=== PATIENT | female | born 1965 | race Caucasian/White ===

== ENCOUNTER 2017-01-12 21:30 | Emergency (ER) | payer OTHER ==
[~2017-01-12] VITALS: Ht 154.9 cm; Wt 98.0 kg
[~2017-01-12 21:30] MED LIST: IBUP800T25 PO; LISI-327 PO
[2017-01-12 21:34] VITALS: Ht 154.9 cm; Wt 98.0 kg
[2017-01-13] MEDS ORDERED: ONDANSETRON (ODT) 4 MG TAB ODT STA (01:08)
[2017-01-13] MEDS ORDERED: KETOROLAC 15 MG INJ IM STA (01:08)
[2017-01-13 01:25] LABS: URINE BLOOD (Dip) POC 2+ (NEGATIVE)
[2017-01-13] MEDS ORDERED: DIAZEPAM 5 MG TAB PO ONE (01:30)
--- NOTE | 2017-01-13 02:47 | ERD ---
ER Documentation Chief Complaint Date/Time DATE: 01/13/17 TIME: 02:36 Chief Complaint pain on right knee, lower back x 1 day. also c/o cough HPI Pleasant 51-year-old female presenting to emergency department with her 2 daughters for translation. Patient reports cold symptoms with vomiting 3 days. Patient reports generalized abdominal pain. She has vomited 5 times last emesis 1400. Patient has been vomiting hard enough to cause low back pain. Patient states pain is on both sides of her back, denies any injury. Patient has a secondary complaint unrelated, chronic right knee pain status post total knee replacement last year. Patient has been seen by her primary care physician for this complaint. Reports that she has not had this type of pain since before surgery. Denies any new injury. Pain is greater than 5/10 on pain scale. Patient denies fever, chills, dysuria, or diarrhea ROS All systems reviewed and are negative except as per history of present illness. Medications Home Meds Active Scripts Hydrocodone/Acetaminophen ([place] 5-325 Tablet) 1 Each Tablet, 1 TAB PO Q6H Y for PAIN, #7 TAB Prov:MAGGIE,NORMA 01/13/17 Ondansetron (Ondansetron Odt) 4 Mg Tab.rapdis, 4 MG PO Q6H Y for NAUSEA AND/OR VOMITING, #10 TAB Prov:MAGGIE,NORMA 01/13/17 Ibuprofen* (Motrin*) 800 Mg Tab, 800 MG PO Q8, #30 TAB 0 Refills Prov:SHERIF KAY PA-C 02/03/16 Reported Medications Lisinopril-Hydrochlorothiazide (Lisinopril-HCTZ) 20-12.5 Mg Tab, 1 TAB PO DAILY , #30 TAB 05/03/16 Allergies Allergies: Coded Allergies: No Known Allergies (Verified Allergy, Mild, 01/12/17) PMhx/Soc History of Surgery: Yes (LT+ RT TKR, ) Anesthesia Reaction: No Hx Neurological Disorder: No Hx Respiratory Disorders: No Hx Cardiac Disorders: Yes (HTN, HIGH CHOLESTEROL) Hx Psychiatric Problems: No Hx Miscellaneous Medical Probl: Yes (OA, HTN) Hx Alcohol Use: No Hx Substance Use: No Hx Tobacco Use: No Smoking Status: Never smoker Physical Exam Vitals Vital Signs Date Time Temp Pulse Resp B/P Pulse Ox O2 Delivery O2 Flow Rate FiO2 01/13/17 03:01 98.6 80 123/78 96 Room Air 01/12/17 21:34 100.0 91 20 126/78 96 Vitals stable, triage note reviewed Physical Exam Const: No acute distress Head: Atraumatic Eyes: Normal Conjunctiva PERRLA, EOMI ENT: Normal External Ears, Nose and Mouth. Mucous membranes moist Neck: Neck is supple. Full range of motion..~ No meningismus. Resp: Chest rise and fall symmetrically clear to auscultation bilaterally, no rales wheezes or rhonchi Cardio: Regular rate and rhythm, no murmurs Abd: Soft, non tender, no epigastric pain, no periumbilical pain, no Lisa' s sign or McBurney point tenderness, abdomen is non distended, obese with normal bowel sounds, no CVA tenderness Skin: No petechiae or rashes Back: No midline or flank tenderness Ext: Lower Extremity -right knee Skin: No laceration, healed midline scar from total knee replacement Compartments: Soft Motor: Full active range of motion hip/knee Sensation: Intact to light touch Bones: Generalized tenderness around patella Joints: No effusion or laxity Pulses/Perfusion: 2+ DP, Capillary refill < 2 seconds Neur: Awake and alert Psych: Normal Mood and Affect Results 24 hrs Laboratory Tests Test 01/13/17 01:24 Bedside Urine pH (LAB) 6.0 Bedside Urine Protein (LAB) 1+ Bedside Urine Glucose (UA) Negative Bedside Urine Ketones (LAB) Trace Bedside Urine Blood 2+ Bedside Urine Nitrite (LAB) Negative Bedside Urine Leukocyte Esterase (L Negative Current Medications Medications (Trade) Dose Ordered Sig/Gillian Route PRN Reason Start Time Stop Time Status Last Admin Dose Admin Ondansetron HCl (Zofran Odt) 4 mg ONCE STAT ODT 01/13/17 01:08 01/13/17 01:12 DC 01/13/17 01:30 Ketorolac Tromethamine (Toradol) 15 mg ONCE STAT IM 01/13/17 01:08 01/13/17 01:12 DC 01/13/17 01:31 Diazepam (Valium) 5 mg ONCE ONCE PO 01/13/17 01:30 01/13/17 01:31 DC 01/13/17 01:30 Microscopic hematuria noted. Proteinuria noted. Patient will follow-up with primary physician for further evaluation Departure Diagnosis: Primary Impression: Knee pain Laterality: right Chronicity: chronic Qualified Code: M25.561 - Chronic pain of right knee Additional Impression: Vomiting Vomiting type: unspecified Vomiting Intractability: non-intractable Nausea presence: with nausea Qualified Code: R11.2 - Non-intractable vomiting with nausea, unspecified vomiting type Condition: Good Patient Instructions: Nausea and Vomiting-Adult, Osteoarthritis [facility] Additional Instructions: Thank you for for coming to [facility] for your care today. Please ask your nurse or provider if you have questions about your care today and do not leave until all your questions have been answered. Please use any medications given as directed and follow-up with your doctor (or the doctor you were referred to) in the next 2-3 days. If you do not have a primary care doctor you may follow up at the [facility] (listed below). You may also use motrin and tylenol as needed for fever and/or pain unless instructed otherwise by your provider or nurse. Indications for more urgent follow-up have been discussed, but you may return to the Emergency Department at ANY time for any worrisome or worsening symptoms. If you have abdominal pain, please know that no test or exam you received is perfect and you should follow up within 8 hours for continued pain. If you had any imaging studies today, such as an X-Ray or CT Scan, these studies will be reviewed later by a radiologist. You will be called if there are important findings that were not identified today, so make sure the contact information you provided at registration is correct. If you received any narcotic pain control medicine today, such as Vicodin, Morphine or Dilaudid, your coordination and judgment may be affected for a number of hours. Please do not drive or operate heavy machinery, and you may want someone to assist you at home. If you were given a prescription for narcotic medication, be aware that it is very addictive- use sparingly and only if necessary. NORMA SERRANO Jan 13, 2017 02:46
[2017-01-13] MEDS ORDERED: ONDA4TAB14 PO (02:48)
[2017-01-13] MEDS ORDERED: HYDR-906 PO (02:48)
[2017-01-13 03:01] VITALS: BP 123/78; PULSE 80; TEMP 98.6
== END 2017-01-13 03:13 | disposition home or self-care (01) ==
LOC: FTE 21:30
DX: M25.561 Pain in right knee (principal); R11.2 Nausea with vomiting, unspecified; I10 Essential (primary) hypertension; Z96.651 Presence of right artificial knee joint
CPT/HCPCS: 81003; 96372; J1885; Z7502; Z7610

== ENCOUNTER 2017-06-20 08:21 | Emergency (ER) | payer OTHER ==
[~2017-06-20] VITALS: Ht 157.5 cm; Wt 85.0 kg
[~2017-06-20 08:21] MED LIST changes: +HYDR-906 PO; +ONDA4TAB14 PO
[2017-06-20 08:31] VITALS: Ht 157.5 cm; Wt 85.0 kg
[2017-06-20] MEDS ORDERED: MED4DP PO (08:52)
[2017-06-20] MEDS ORDERED: BEN25 PO (08:52)
[2017-06-20] MEDS ORDERED: IBUP400T22 PO (08:52)
[2017-06-20] MEDS ORDERED: DIPHENHYDRAMINE 25 MG CAP PO ONE (09:00)
[2017-06-20] MEDS ORDERED: predniSONE 20 MG TAB PO ONE (09:00)
--- NOTE | 2017-06-20 09:43 | ERD ---
ER Documentation Chief Complaint Date/Time DATE: 06/20/17 TIME: 09:39 Chief Complaint Generalized rash x 1 week HPI 52-year-old female comes in with generalized pruritic rash that started yesterday after eating ceviche shrimp. She states that she has had diffuse itching that goes on and off, mostly on her trunk. She has no trouble swallowing, voice changes. She has not had any other foods, medications, lotions or creams or allergens that she can think of. She is no trouble breathing, chest pain. She also reports left-sided jaw swelling and tenderness. She has not had any fevers, ear pain, sore throat, rhinorrhea or cough with this. ROS All systems reviewed and are negative except as per history of present illness. Medications Home Meds Active Scripts Ibuprofen* (Motrin*) 400 Mg Tab, 400 MG PO Q6, #20 TAB Prov:MARIIA LISA PA-C 06/20/17 Diphenhydramine Hcl* (Benadryl*) 25 Mg Cap, 25 MG PO Q6H Y for ITCHING, #30 CAP Prov:MARIIA LISA PA-C 06/20/17 Methylprednisolone* (Medrol* DOSE PACK) 4 Mg/Dose-Pack Tab.ds.pk, 4 MG PO . DIRECTED, #1 PACKET Prov:MARIIA LISA PA-C 06/20/17 Hydrocodone/Acetaminophen ([place] 5-325 Tablet) 1 Each Tablet, 1 TAB PO Q6H Y for PAIN, #7 TAB Prov:MAGGIE,NORMA 01/13/17 Ondansetron (Ondansetron Odt) 4 Mg Tab.rapdis, 4 MG PO Q6H Y for NAUSEA AND/OR VOMITING, #10 TAB Prov:MAGGIE,NORMA 01/13/17 Ibuprofen* (Motrin*) 800 Mg Tab, 800 MG PO Q8, #30 TAB 0 Refills Prov:SHERIF KAY PA-C 02/03/16 Reported Medications Lisinopril-Hydrochlorothiazide (Lisinopril-HCTZ) 20-12.5 Mg Tab, 1 TAB PO DAILY , #30 TAB 05/03/16 Allergies Allergies: Coded Allergies: No Known Allergies (Verified Allergy, Mild, 01/12/17) PMhx/Soc History of Surgery: Yes (LT+ RT TKR, ) Anesthesia Reaction: No Hx Neurological Disorder: No Hx Respiratory Disorders: No Hx Cardiac Disorders: Yes (HTN, HIGH CHOLESTEROL) Hx Psychiatric Problems: No Hx Miscellaneous Medical Probl: Yes (OA, HTN) Hx Alcohol Use: No Hx Substance Use: No Hx Tobacco Use: No Smoking Status: Never smoker Physical Exam Vitals Vital Signs Date Time Temp Pulse Resp B/P Pulse Ox O2 Delivery O2 Flow Rate FiO2 06/20/17 08:31 97.9 73 20 145/86 99 Physical Exam General: Well-developed, well-nourished. The patient appears in no acute distress. HEENT: Head is normocephalic, atraumatic. No scleral icterus. Pupils are equal , round, and reactive. Oral mucous membranes are moist. No pharyngeal erythema.No angioedema. Preauricular lymph node swelling on the left side Neck: Supple. Nontender. Lungs: Clear to auscultation. Normal air movement. Heart: Regular rate and rhythm. S1 and S2 are normal. No murmurs, gallops, or rubs. Abdomen: Soft, nontender, nondistended. Bowel sounds are normoactive. Extremities: No clubbing or cyanosis. Normal pulses. Moving extremities x 4. No weakness. Neurologic: Alert and oriented 3. No focal deficits. Skin:Generalized macular rash that is erythematous, blanchable on the trunk Results 24 hrs Current Medications Medications (Trade) Dose Ordered Sig/Gillian Route PRN Reason Start Time Stop Time Status Last Admin Dose Admin Diphenhydramine HCl (Benadryl) 25 mg ONCE ONCE PO 06/20/17 09:00 06/20/17 09:01 DC 06/20/17 08:57 Prednisone (Prednisone) 40 mg ONCE ONCE PO 06/20/17 09:00 06/20/17 09:01 DC 06/20/17 08:58 Procedures/MDM 52-year-old female comes in with a generalized rash that appears to be pruritic , intermittent, likely allergic reaction. She does not show any signs of severe reaction, anaphylaxis, bacterial infection, Mononucleosis. She also has lymphadenopathy on the left side that is preauricular, there are no signs of any infection, trismus, abscess.Patient's allergic symptoms have stabilized while they have been evaluated in the department without evidence of persistent systemic reaction. Patient is healthy and capable of treating and responding to rebound reactions. Patient appropriate for outpatient allergy work up and treatment. Departure Diagnosis: Primary Impression: Rash Condition: Good Patient Instructions: Allergic Reaction, Other (General) MARIIA LISA PA-C Jun 20, 2017 09:43
== END 2017-06-20 09:22 | disposition home or self-care (01) ==
LOC: FTE 08:21
DX: R21 Rash and other nonspecific skin eruption (principal); I10 Essential (primary) hypertension; Z96.651 Presence of right artificial knee joint; Z96.652 Presence of left artificial knee joint
CPT/HCPCS: J7512; Z7502; Z7610; 99283

== ENCOUNTER 2018-01-02 12:15 | Emergency (ER) | END 2018-01-02 17:32 | disposition home or self-care (01) ==

== ENCOUNTER 2018-03-28 08:07 | Day surgery (SDC) | END 2018-03-28 12:20 | disposition home or self-care (01) ==

== ENCOUNTER 2018-06-09 11:19 | Emergency (ER) | END 2018-06-09 14:36 | disposition home or self-care (01) ==

== ENCOUNTER 2019-05-01 10:33 | Emergency (ER) | payer OTHER ==
[~2019-05-01] VITALS: Ht 162.6 cm; Wt 108.0 kg
[~2019-05-01 10:33] MED LIST changes: +FAMO-96 PO; -HYDR-906 PO; -IBUP800T25 PO; +LEVO50TA7 PO; -LISI-327 PO; +LISI-471 PO; +NAPR-985 PO; -ONDA4TAB14 PO; +STOMACH MED PO
[2019-05-01 10:48] VITALS: BP 162/74; PULSE 98; RESP 20; Ht 162.6 cm; Wt 108.0 kg
[2019-05-01] MEDS ORDERED: ALBUTEROL 0.083% (NEB) 2.5 MG/3 ML AMP NEB STA (10:57)
[2019-05-01] MEDS ORDERED: IPRATROPIUM (NEB) 0.5 MG/2.5 ML AMP NEB STA (10:57)
[2019-05-01] MEDS ORDERED: DEXAMETHASONE 10 MG/ML 1 ML INJ PO ONE (11:00)
[2019-05-01] MEDS ORDERED: ACETAMINOPHEN 325 MG TAB PO ONE (11:00)
[2019-05-01] MEDS ORDERED: AZIT250T PO (11:56)
--- NOTE | 2019-05-01 12:00 | ERD ---
ER Documentation Chief Complaint Chief Complaint pt is bib self with c/o cough x 3 wks, slight fever HPI 54-year-old female is here complaining of dry cough for the past 3 weeks as well as mild fever. He also states she gets chills at night and has woke up sweaty a couple times. No palpitations. She is been taking anti-inflammatories and Robitussin at home with minimal relief. No hemoptysis or unplanned weight loss. ROS All systems reviewed and are negative except as per history of present illness. Medications Home Meds Active Scripts Azithromycin* (Zithromax*) 250 Mg Tablet, 250 MG PO .ZPACK DIRECTED, #6 TAB TAKE 500 MG (2 TABS) THE FIRST DAY THEN 250 MG (1 TAB) DAYS 2-5 Prov:MARIA ELENA ROMERO PA-C 05/01/19 Naproxen* (Naprosyn*) 500 Mg Tablet, 500 MG PO BID PRN for PAIN AND/OR INFLAMMATION, #30 TAB Prov:ARIEL MCKEON PA-C 06/09/18 Famotidine* (Pepcid*) 20 Mg Tablet, 20 MG PO BID for 14 Days, TAB Prov:TROY VERDIN MD 01/02/18 Reported Medications [Stomach Med] No Conflict Check, PO DAILY 03/28/18 Lisinopril* (Lisinopril*) 20 Mg Tablet, 20 MG PO DAILY, #30 TAB 01/02/18 Levothyroxine Sodium* (Levothyroxine Sodium*) 50 Mcg Tablet, 50 MCG PO BEFORE B REAKFAST, #30 TAB 01/02/18 Allergies Allergies: Coded Allergies: No Known Allergies (Verified Allergy, Mild, 03/28/18) PMhx/Soc History of Surgery: Yes (BILAT KNEE REPLACEMENT) Anesthesia Reaction: No Hx Neurological Disorder: No Hx Respiratory Disorders: No Hx Cardiac Disorders: No Hx Psychiatric Problems: No Hx Miscellaneous Medical Probl: No Hx Alcohol Use: No Hx Substance Use: No Hx Tobacco Use: No FmHx Family History: No diabetes Physical Exam Vitals Vital Signs Date Temp Pulse Resp B/P (MAP) Pulse Ox O2 O2 Flow FiO2 Time Delivery Rate 05/01/19 89 20 96 21 11:22 05/01/19 100.6 11:03 05/01/19 100.5 98 20 162/74 96 10:48 (103) Physical Exam INITIAL VITAL SIGNS: Reviewed by me GENERAL: Awake, alert and oriented x 4, well appearing, nontoxic, speaking in full sentences. No acute distress HEAD: Atraumatic NOSE: Normal nose. THROAT: No tonilar erythema or edema. No exudates. Uvula midline. No kissing tonsils. RESPIRATORY: Clear to auscultation bilaterally. Symmetric chest wall rise. No wheezing or rales. No accessory muscle use. CV: Regular rate and rhythm. No murmurs, rubs, or gallops. Results 24 hrs Current Medications Medications Dose Sig/Gillian Start Time Status Last (Trade) Ordered Route PRN Stop Time Admin Dose Reason Admin Albuterol 5 mg ONCE STAT 05/01/19 DC 05/01/19 (Proventil NEB 10:57 11:21 0.083% (Neb)) 05/01/19 10:58 Ipratropium 0.5 mg ONCE STAT 05/01/19 DC 05/01/19 [place] NEB 10:57 11:21 (Atrovent 05/01/19 10:58 0.02% (Neb)) 10 mg ONCE ONCE 05/01/19 DC 05/01/19 Dexamethasone PO 11:00 11:02 (Decadron) 05/01/19 11:01 650 mg ONCE ONCE 05/01/19 DC 05/01/19 Acetaminophen PO 11:00 11:03 (Tylenol 05/01/19 11:01 Tab) Procedures/MDM 54-year-old female is here with cough for the past 3 weeks. She does have a low-grade temperature and was given Tylenol. No tachycardia. I doubt sepsis. Chest x-ray is negative. She was given Decadron and a breathing treatment here with improvement. She is discharged with Z-Peyman. Patient counseled regarding my diagnostic impression and care plan. Prior to discharge all questions answered. Pt agrees with treatment plan and understands strict return precautions. Pt is instructed to follow up with primary care provider within 24-48 hours. Precautionary instructions provided including instructions to return to the ER if not improving or for any worsening or changing symptoms or concerns. Departure Diagnosis: Primary Impression: Bronchitis Condition: Stable Patient Instructions: Bronchitis, Antiobiotic Treatment (Adult) Additional Instructions: Llame al doctor MANUEL y audi shannon MELVA PARA DENTRO DE 1-2 GODINEZ.Dgale a la secretaria que nosotros le instruimos hacer esta melva.Avise o llame si lemus condicin se empeora antes de la melva. Regresa aqui si peor o no mejor. MARIA ELENA ROMERO PA-C May 01, 2019 12:00
[2019-05-01] MEDS ORDERED: ALBU8.5H8 INH (12:11)
== END 2019-05-01 12:13 | disposition home or self-care (01) ==
LOC: FTE 10:33
DX: J40 Bronchitis, not specified as acute or chronic (principal); Z96.653 Presence of artificial knee joint, bilateral
CPT/HCPCS: 71045; 94664; J1100; Z7502; Z7610

== ENCOUNTER 2019-06-02 12:20 | Emergency (ER) | payer OTHER ==
[~2019-06-02] VITALS: Ht 160 cm; Wt 104.7 kg
[~2019-06-02 12:20] MED LIST changes: +ALBU8.5H8 INH; +AZIT250T PO; +CYCL10TA7 PO; +IBUP-1542 PO
[2019-06-02 12:35] VITALS: BP 165/99; PULSE 74; RESP 18; Ht 160 cm; Wt 104.7 kg
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
== END 2019-06-02 14:14 | disposition home or self-care (01) ==
LOC: E/R 12:20
DX: M54.2 Cervicalgia (principal); Z96.653 Presence of artificial knee joint, bilateral
CPT/HCPCS: 72040; Z7502